=== PATIENT | male | born 1950 | race Caucasian/White ===

== ENCOUNTER 2019-05-20 20:32 | Emergency (ER) | payer MEDICARE, OTHER ==
--- NOTE | 2019-05-20 21:04 | RAD ---
XR Chest 1 View Portable HISTORY: Cough and fever COMPARISON: 06/16/2006 study. FINDINGS: A normal limits heart size is within normal limits. Postop sternotomy changes are present. The lungs are clear of infiltrates. IMPRESSION: No active intrathoracic disease.
[2019-05-20 21:29] LABS: #Eosinphils 0.1 thou/uL (0.0-0.7); #Lymphocytes 0.9 thou/uL (1.20-3.40); #Monocytes 0.7 thou/uL (0.11-0.59); #Neutrophils 4.9 thou/uL (1.40-6.50); %Basophils 0.6 % (0.0-1.0); %Eosinophils 0.8 % (0.0-10.0); %Lymphocytes 13.5 % (21.0-51.0); %Neutrophils 74.3 % (42.0-75.0); Mean Corpuscular Hemoglobin 28.8 pg (27.0-31.0); Mean Corpuscular Volume 84.8 fL (78.0-98.0); Mean Platelet Volume 8.3 fL (7.4-10.4); Platelet Count 183 thou/uL (130-400); RBC Distribution Width 13.2 % (11.5-14.5); White Blood Cell (WBC) Count 6.6 thou/uL (4.8-10.8)
[2019-05-20] MEDS ORDERED: Acetaminophen 500 MG TAB ONE (21:33)
[2019-05-20 21:41] LABS: ALT (SGPT) 18 U/L (8-55); AST (SGOT) 16 U/L (5-34); Alkaline Phosphatase 80 U/L (40-110); Anion Gap 13 mmol/L (10-20); BUN (Urea Nitrogen) 37 mg/dL (8.4-25.7); Bilirubin, Total 0.5 mg/dL (0.2-1.2); Calc. Creatinine Clearance 0 mL/min (70-130); Calcium 9.3 mg/dL (7.8-10.44); Carbon Dioxide 22 mmol/L (23-31); Chloride 102 mmol/L (98-107); Estimated GFR-MDRD 38; Glucose 270 mg/dL (80-115); Potassium 4.3 mmol/L (3.5-5.1); Sodium 133 mmol/L (136-145)
[2019-05-20 21:55] LABS: Bacteria/HPF None Seen HPF (None Seen); Bilirubin Negative (Negative); Blood, Urine Negative (Negative); Clarity Clear (Clear); Glucose, Urine (Dipstick) Greater than 1000 mg/dL (Negative); Leukocyte Negative Leu/uL (Negative); Nitrite Negative (Negative); Protein, Urine (Dipstick) 70 mg/dL (Neg-Trace); RBC/HPF None Seen HPF (0-3); Squamous Epithelial None Seen HPF (0-3); Urobilinogen Normal mg/dL (Less than 2); WBC/HPF 0-3 HPF (0-3)
== END 2019-05-21 00:39 | disposition home or self-care (01) ==
LOC: ERS 20:32
DX: J18.9 Pneumonia, unspecified organism (principal); E11.9 Type 2 diabetes mellitus without complications; E03.9 Hypothyroidism, unspecified; I10 Essential (primary) hypertension; I25.10 Atherosclerotic heart disease of native coronary artery without angina pectoris; Z86.73 Personal history of transient ischemic attack (TIA), and cerebral infarction without residual deficits; Z85.038 Personal history of other malignant neoplasm of large intestine; Z79.4 Long term (current) use of insulin; Z79.899 Other long term (current) drug therapy; Z79.82 Long term (current) use of aspirin; Z79.01 Long term (current) use of anticoagulants
CPT/HCPCS: 71045; 80053; 81003; 81015; 85025; 87040; 87086; 87804; 96360; 96361

== ENCOUNTER 2019-05-23 05:22 | Emergency (ER) | payer MEDICARE, OTHER ==
[2019-05-23 06:01] LABS: #Eosinphils 0.1 thou/uL (0.0-0.7); #Lymphocytes 0.9 thou/uL (1.20-3.40); #Monocytes 0.8 thou/uL (0.11-0.59); #Neutrophils 7.6 thou/uL (1.40-6.50); %Basophils 0.3 % (0.0-1.0); %Eosinophils 0.6 % (0.0-10.0); %Lymphocytes 9.5 % (21.0-51.0); %Monocytes 8.6 % (0.0-10.0); Hemoglobin 12.7 g/dL (14.0-18.0); Mean Corpuscular HGB CONC 33.2 g/dL (32.0-36.0); Mean Corpuscular Hemoglobin 28.3 pg (27.0-31.0); Mean Corpuscular Volume 85.3 fL (78.0-98.0); Mean Platelet Volume 8.3 fL (7.4-10.4); Platelet Count 158 thou/uL (130-400); RBC Distribution Width 13.2 % (11.5-14.5); Red Blood Cell (RBC) Count 4.47 mill/uL (4.70-6.10); White Blood Cell (WBC) Count 9.3 thou/uL (4.8-10.8)
[2019-05-23 06:41] LABS: ALT (SGPT) 14 U/L (8-55); AST (SGOT) 15 U/L (5-34); Albumin 3.7 g/dL (3.4-4.8); Alkaline Phosphatase 67 U/L (40-110); Anion Gap 13 mmol/L (10-20); BUN (Urea Nitrogen) 35 mg/dL (8.4-25.7); Bilirubin, Total 0.6 mg/dL (0.2-1.2); Calc. Creatinine Clearance 0 mL/min (70-130); Calcium 8.8 mg/dL (7.8-10.44); Carbon Dioxide 21 mmol/L (23-31); Chloride 106 mmol/L (98-107); Estimated GFR-MDRD 46; Globulin 3.1 g/dL (2.4-3.5); Glucose 126 mg/dL (80-115); Potassium 4.1 mmol/L (3.5-5.1); Protein, Total 6.8 g/dL (5.8-8.1); Sodium 136 mmol/L (136-145)
--- NOTE | 2019-05-23 07:35 | RAD ---
XR Chest Pa Lat STANDARD History: Cough Comparison: Radiograph May 20, 2019 Findings: Subtle left basilar airspace opacity. No pneumothorax. No effusion. Cardiac silhouette and mediastinal contours are within normal limits. Impression: Subtle left basilar opacity concerning for infection. Follow-up after treatment recommend ed.
[2019-05-23 09:43] LABS: Bacteria/HPF None Seen HPF (None Seen); Bilirubin Negative (Negative); Blood, Urine Trace (Negative); Clarity Clear (Clear); Glucose, Urine (Dipstick) Normal (Negative); Leukocyte Negative Leu/uL (Negative); Nitrite Negative (Negative); Protein, Urine (Dipstick) 70 mg/dL (Neg-Trace); RBC/HPF 0-3 HPF (0-3); Squamous Epithelial None Seen HPF (0-3); Urobilinogen Normal mg/dL (Less than 2); WBC/HPF 0-3 HPF (0-3)
== END 2019-05-23 10:45 | disposition home or self-care (01) ==
LOC: ERS 05:22
DX: J18.9 Pneumonia, unspecified organism (principal); I25.10 Atherosclerotic heart disease of native coronary artery without angina pectoris; E11.9 Type 2 diabetes mellitus without complications; E03.9 Hypothyroidism, unspecified; I10 Essential (primary) hypertension; Z86.73 Personal history of transient ischemic attack (TIA), and cerebral infarction without residual deficits; Z79.84 Long term (current) use of oral hypoglycemic drugs; Z79.899 Other long term (current) drug therapy; Z79.82 Long term (current) use of aspirin; Z79.01 Long term (current) use of anticoagulants
CPT/HCPCS: 36415; 36416; 71046; 80053; 81003; 81015; 83605; 83880; 84484; 85025; 87040; 87077; 87149; 93005; 96360

== ENCOUNTER 2019-06-26 15:11 | Outpatient (CLI) | payer MEDICARE ==
--- NOTE | 2019-06-26 15:57 | ULT ---
Exam: Bilateral renal ultrasound HISTORY: Chronic kidney disease COMPARISON: None FINDINGS: Right kidney: Normal cortical echotexture. No hydronephrosis. Right kidney measurements: 6.6 x 12.3 x 6.5 cm. Left kidney: Normal cortical echotexture. No hydronephrosis Left kidney measurements 6.6 x 12.8 x 5.6 cm. Urinary bladder: Normal mucosa. IMPRESSION: No hydronephrosis.
== END 2019-06-26 15:12 | disposition home or self-care (01) ==
LOC: BICULT 15:11
PROVIDERS: ATTEND Internal Medicine Nephrology
DX: N18.3 Chronic kidney disease, stage 3 (moderate) (principal)
CPT/HCPCS: 76770

== ENCOUNTER 2022-04-03 13:45 | Outpatient (CLI) | payer MEDICARE | END 2022-04-03 13:46 | disposition home or self-care (01) | LOC: BICRAD 13:45 | PROVIDERS: ATTEND Family Medicine | DX: M79.672 Pain in left foot (principal) ==

== ENCOUNTER 2022-04-30 13:58 | Outpatient (CLI) | payer MEDICARE | END 2022-04-30 13:59 | disposition home or self-care (01) | LOC: ULT 13:58 | PROVIDERS: ATTEND Family Medicine | DX: M79.605 Pain in left leg (principal) ==

== ENCOUNTER 2022-05-05 13:50 | Outpatient (CLI) | payer MEDICARE | END 2022-05-05 13:51 | disposition home or self-care (01) | LOC: BICRAD 13:50 | PROVIDERS: ATTEND Family Medicine | DX: M79.672 Pain in left foot (principal) ==

== ENCOUNTER 2022-06-28 12:52 | Emergency (ER) | payer MEDICARE ==
[2022-06-28] MEDS ORDERED: Tranexamic Acid 1,000 MG/10 ML VIAL ONE (13:27)
== END 2022-06-28 14:10 | disposition home or self-care (01) ==
LOC: ERS 12:52
DX: K64.9 Unspecified hemorrhoids (principal); E11.9 Type 2 diabetes mellitus without complications; E03.9 Hypothyroidism, unspecified; I10 Essential (primary) hypertension; Z79.4 Long term (current) use of insulin; Z79.899 Other long term (current) drug therapy

== ENCOUNTER 2022-06-28 15:11 | Emergency (ER) | payer MEDICARE ==
[2022-06-28] MEDS ORDERED: Lidocaine 1% w/Epinephrine 1:100K 20 ML VIAL ONE (15:18)
== END 2022-06-28 18:50 | disposition home or self-care (01) ==
LOC: ERS 15:11
DX: S41.131A Puncture wound without foreign body of right upper arm, initial encounter (principal); E11.9 Type 2 diabetes mellitus without complications; E03.9 Hypothyroidism, unspecified; I10 Essential (primary) hypertension; W18.30XA Fall on same level, unspecified, initial encounter; Z79.4 Long term (current) use of insulin; Z79.899 Other long term (current) drug therapy
CPT/HCPCS: 12001; 99283

== ENCOUNTER 2023-02-02 14:36 | Outpatient (CLI) | payer MEDICARE | END 2023-02-02 14:37 | disposition home or self-care (01) | LOC: BICRAD 14:36 | PROVIDERS: ATTEND Family Medicine | DX: M54.50 Low back pain, unspecified (principal); M51.36 Other intervertebral disc degeneration, lumbar region; M47.816 Spondylosis without myelopathy or radiculopathy, lumbar region; M41.9 Scoliosis, unspecified | CPT/HCPCS: 72100 ==

== ENCOUNTER → 2023-02-23 | Day surgery (SDC) | payer MEDICARE ==
[2023-02-15 14:24] VITALS: BMI 30.9
[2023-02-15 14:49] LABS: Hematocrit 37.7 % (38.8-50.0); Hemoglobin 11.4 g/dL (13.5-17.5); Mean Corpuscular HGB CONC 30.2 g/dL (32.0-36.0); Mean Corpuscular Hemoglobin 23.1 pg (27.0-33.0); Mean Corpuscular Volume 76.5 fl (81.2-95.1); Mean Platelet Volume 9.4 fl (7.4-10.4); Platelet Count 250 10x3/uL (150-450); RBC Distribution Width 20.5 % (11.5-14.5); Red Blood Cell (RBC) Count 4.93 10x6/uL (4.32-5.72); White Blood Cell (WBC) Count 7.6 10x3/uL (3.5-10.5)
[2023-02-15 14:57] LABS: Prothrombin Time 11.1 sec (9.5-12.1)
[2023-02-15 15:08] LABS: Anion Gap 14 mmol/L (10-20); BUN (Urea Nitrogen) 34 mg/dL (8.4-25.7); Calc. Creatinine Clearance 47 mL/min (70-130); Calcium 8.6 mg/dL (7.8-10.44); Carbon Dioxide 23 mmol/L (23-31); Chloride 103 mmol/L (98-107); Estimated GFR 36; Glucose 318 mg/dL (83-110); Potassium 4.4 mmol/L (3.5-5.1); Sodium 136 mmol/L (136-145)
[~2023-02-23] MED LIST: Lidocaine 1% PF 5 ML VIAL ONE; PROPOFOL 200 MG/20 ML VIAL ONE
== END ==
LOC: SDC 05:49
PROVIDERS: ATTEND Internal Medicine Cardiovascular Disease
PROC: 5A2204Z Restoration of Cardiac Rhythm, Single (ICD-10-PCS; principal; 2023-02-23)
DX: I48.19 Other persistent atrial fibrillation (principal); I48.4 Atypical atrial flutter; I25.10 Atherosclerotic heart disease of native coronary artery without angina pectoris; E11.9 Type 2 diabetes mellitus without complications; E78.5 Hyperlipidemia, unspecified; I63.9 Cerebral infarction, unspecified; E03.9 Hypothyroidism, unspecified; Z86.010 Personal history of colon polyps; Z98.890 Other specified postprocedural states; Z88.8 Allergy status to other drugs, medicaments and biological substances; Z92.89 Personal history of other medical treatment; Z79.899 Other long term (current) drug therapy
CPT/HCPCS: 36416; 80048; 85027; 85610; 92960; 93005; 93010; J2704

== ENCOUNTER 2024-05-19 17:00 | Inpatient (IN) | payer MEDICARE ==
[2024-05-19 17:58] LABS: #Basophils 0.03 10x3/uL (0.0-0.2); %Basophils 0.3 % (0.0-1.0); %Eosinophils 0.8 % (0.0-10.0); %Lymphocytes 12.4 % (21.0-51.0); %Monocytes 7.2 % (0.0-10.0); %Neutrophils 78.5 % (42.0-75.0); Hematocrit 45.1 % (42.0-52.0); Hemoglobin 14.6 g/dL (14.0-18.0); Mean Corpuscular HGB CONC 32.4 g/dL (32.0-36.0); Mean Corpuscular Hemoglobin 27.3 pg (27.0-31.0); Mean Corpuscular Volume 84.5 fL (78.0-98.0); Mean Platelet Volume 10.6 fL (7.4-10.4); Platelet Count 178 10x3/uL (130-400); RBC Distribution Width 14.5 % (11.5-14.5); Red Blood Cell (RBC) Count 5.34 mill/uL (4.70-6.10)
[2024-05-19 18:21] LABS: ALT (SGPT) 27 U/L (8-55); AST (SGOT) 24 U/L (5-34); Albumin 3.6 g/dL (3.4-4.8); Alkaline Phosphatase 94 U/L (40-110); Anion Gap 13 mmol/L (10-20); BUN (Urea Nitrogen) 57 mg/dL (8.4-25.7); Bilirubin, Total 0.6 mg/dL (0.2-1.2); Calc. Creatinine Clearance 0 mL/min (70-130); Calcium 9.7 mg/dL (7.8-10.44); Carbon Dioxide 24 mmol/L (23-31); Chloride 104 mmol/L (98-107); Estimated GFR 46; Globulin 4.2 g/dL (2.4-3.5); Glucose 175 mg/dL (83-110); Potassium 4.3 mmol/L (3.5-5.1); Protein, Total 7.8 g/dL (5.8-8.1); Sodium 137 mmol/L (136-145)
[2024-05-19 18:26] LABS: Acetaminophen Less than 10 mcg/mL (Less than 10); Alcohol Less than 10.0 mg/dL (Less than 10); Magnesium 2.7 mg/dL (1.6-2.6); Salicylate Less than 8.0 mg/dL (Less than 8.0)
[2024-05-19 19:27] LABS: Actual Bicarbonate (HCO3v) 23.1 mEq/L (22-28); Analyzer IN Cardio ER; Base Excess -2.6 mEq/L (-2.0 to +3.0); Calcium, Ionized (venous) 1.11 mmol/L (1.16-1.32); Chloride (VBG) 103 mmol/L (98-106); Hematocrit-VBG 42 % (42.0-52.0); Hemoglobin (Hb) 14.2 g/dL (12.6-17.4); Potassium (VBG) 5.29 mmol/L (3.70-5.30); Sodium 135 mmol/L (133-146); pH (venous) 7.344 (7.32-7.43)
[2024-05-19 20:24] LABS: Bacteria/HPF None Seen HPF (None Seen); Bilirubin Negative (Negative); Blood, Urine Negative (Negative); CAUTI Indications for Culture Alt mental st,lethar; Clarity Clear (Clear); Glucose, Urine (Dipstick) Greater than 1000 mg/dL (Negative); Ketone, Urine Negative (Negative); Leukocyte Negative Leu/uL (Negative); Nitrite Negative (Negative); Protein, Urine (Dipstick) 50 mg/dL (Neg-Trace); RBC/HPF 0-3 HPF (0-3); Specific Gravity, Urine 1.018 (1.002-1.036); Squamous Epithelial 0-3 HPF (0-3); Urobilinogen Normal mg/dL (Less than 2); WBC/HPF 0-3 HPF (0-3); pH, Urine 5.5 (5.0-9.0)
[2024-05-19 20:26] LABS: Urine Culture Reflex No No
[2024-05-19 20:29] LABS: Amphetamine Not Detected (NotDetected); Barbiturates Screen Not Detected (NotDetected); Benzodiazepine Screen Not Detected (NotDetected); Cocaine Metabolite Screen Not Detected (NotDetected); Methadone Not Detected (NotDetected); Methamphetamine Not Detected (NotDetected); Opiate Screen Not Detected (NotDetected); Oxycodone Screen Not Detected (NotDetected); Phencyclidine (PCP) Not Detected (NotDetected); THC/Cannabinoid Screen Detected (NotDetected); Tricyclic Screen Not Detected (NotDetected)
[2024-05-19] MEDS ORDERED: Enoxaparin 100 MG (1 mL) SYRINGE ONE (21:31)
[2024-05-20 01:07] VITALS: BMI 29.9
[2024-05-20] MEDS ORDERED: Acetaminophen 325 MG TAB PO PRN (01:15)
[2024-05-20] MEDS ORDERED: Ondansetron PF 4 MG/2 ML Vial IVP PRN (01:15)
[2024-05-20] MEDS ORDERED: Ondansetron ODT 4 MG TAB PO PRN (01:15)
[2024-05-20] MEDS ORDERED: Calcium Carbonate 500 MG ChewTAB PO PRN (01:15)
[2024-05-20] MEDS ORDERED: Acetaminophen 650 MG Suppository PR PRN (01:15)
[2024-05-20] MEDS ORDERED: Glucagon 1 MG/ML KIT IM PRN (01:16)
[2024-05-20] MEDS ORDERED: Dextrose 5% in Water 1,000 ML IV PRN (01:16)
[2024-05-20] MEDS ORDERED: Dextrose 50% Abboject 50 ML SYRINGE SLOW IVP PRN (01:16)
[2024-05-20 05:07] LABS: #Basophils 0.04 10x3/uL (0.0-0.2); %Basophils 0.5 % (0.0-1.0); %Eosinophils 1.2 % (0.0-10.0); %Lymphocytes 31.6 % (21.0-51.0); %Monocytes 8.6 % (0.0-10.0); %Neutrophils 57.7 % (42.0-75.0); Hemoglobin 12.4 g/dL (14.0-18.0); Mean Corpuscular HGB CONC 33.5 g/dL (32.0-36.0); Mean Corpuscular Hemoglobin 27.4 pg (27.0-31.0); Mean Corpuscular Volume 81.9 fL (78.0-98.0); Mean Platelet Volume 10.2 fL (7.4-10.4); Platelet Count 155 10x3/uL (130-400); RBC Distribution Width 14.5 % (11.5-14.5); Red Blood Cell (RBC) Count 4.52 mill/uL (4.70-6.10)
[2024-05-20 05:25] LABS: Anion Gap 10 mmol/L (10-20); BUN (Urea Nitrogen) 48 mg/dL (8.4-25.7); Calc. Creatinine Clearance 61 mL/min (70-130); Calcium 8.7 mg/dL (7.8-10.44); Carbon Dioxide 21 mmol/L (23-31); Chloride 109 mmol/L (98-107); Estimated GFR 52; Glucose 139 mg/dL (83-110); Potassium 4.3 mmol/L (3.5-5.1); Sodium 136 mmol/L (136-145)
[2024-05-20] MEDS: Levothyroxine Sodium 100 MCG TAB PO SCH (05:48)
[2024-05-20] MEDS: Insulin Glargine 30 UNITS/0.3 ML VIAL SC SCH (08:14)
[2024-05-20] MEDS: Hydrochlorothiazide 25 MG TAB PO SCH (08:16)
[2024-05-20] MEDS: Losartan 25 MG TAB PO SCH (08:16)
[2024-05-20] MEDS: Famotidine 20 MG TAB PO SCH (08:16)
[2024-05-20] MEDS: Atorvastatin Calcium 40 MG TAB PO SCH (08:16)
[2024-05-20] MEDS: Famotidine/PF 20 mg/2ml Vial SLOW IVP SCH (08:18)
[2024-05-20] MEDS: Insulin Lispro 100 UNIT/ML 10 ML VIAL SC PRN (11:57)
[2024-05-20] MEDS ORDERED: Metoprolol Succinate XL 50 MG ER.TAB PO SCH (21:00)
[2024-05-20] MEDS: Rivaroxaban 15 MG TAB PO SCH (21:26)
[2024-05-21 04:09] LABS: #Basophils 0.04 10x3/uL (0.0-0.2); %Basophils 0.6 % (0.0-1.0); %Eosinophils 1.6 % (0.0-10.0); %Lymphocytes 32.8 % (21.0-51.0); %Monocytes 11.4 % (0.0-10.0); %Neutrophils 53.3 % (42.0-75.0); Hematocrit 38.2 % (42.0-52.0); Hemoglobin 12.7 g/dL (14.0-18.0); Mean Corpuscular HGB CONC 33.2 g/dL (32.0-36.0); Mean Corpuscular Hemoglobin 27.3 pg (27.0-31.0); Mean Corpuscular Volume 82.2 fL (78.0-98.0); Mean Platelet Volume 10.4 fL (7.4-10.4); Platelet Count 139 10x3/uL (130-400); RBC Distribution Width 14.2 % (11.5-14.5); Red Blood Cell (RBC) Count 4.65 mill/uL (4.70-6.10)
[2024-05-21 04:22] LABS: Anion Gap 11 mmol/L (10-20); BUN (Urea Nitrogen) 50 mg/dL (8.4-25.7); Calc. Creatinine Clearance 53 mL/min (70-130); Calcium 8.7 mg/dL (7.8-10.44); Carbon Dioxide 21 mmol/L (23-31); Chloride 107 mmol/L (98-107); Estimated GFR 44; Glucose 200 mg/dL (83-110); Potassium 4.2 mmol/L (3.5-5.1); Sodium 135 mmol/L (136-145)
[2024-05-21] MEDS: Aspirin 81 mg Enteric Coated Tablet PO SCH (09:40)
[2024-05-21] MEDS: Insulin Lispro 100 UNIT/ML 10 ML VIAL SC PRN ×2 (11:21→21:11)
[2024-05-22 05:41] LABS: #Basophils 0.05 10x3/uL (0.0-0.2); %Basophils 0.7 % (0.0-1.0); %Eosinophils 1.5 % (0.0-10.0); %Lymphocytes 29.3 % (21.0-51.0); %Monocytes 9.7 % (0.0-10.0); %Neutrophils 58.4 % (42.0-75.0); Hematocrit 37.8 % (42.0-52.0); Hemoglobin 12.6 g/dL (14.0-18.0); Mean Corpuscular HGB CONC 33.3 g/dL (32.0-36.0); Mean Corpuscular Hemoglobin 27.7 pg (27.0-31.0); Mean Corpuscular Volume 83.1 fL (78.0-98.0); Mean Platelet Volume 10.6 fL (7.4-10.4); Platelet Count 154 10x3/uL (130-400); RBC Distribution Width 13.9 % (11.5-14.5); Red Blood Cell (RBC) Count 4.55 mill/uL (4.70-6.10)
[2024-05-22 05:55] LABS: Anion Gap 12 mmol/L (10-20); BUN (Urea Nitrogen) 50 mg/dL (8.4-25.7); Calc. Creatinine Clearance 55 mL/min (70-130); Calcium 8.9 mg/dL (7.8-10.44); Carbon Dioxide 24 mmol/L (23-31); Chloride 108 mmol/L (98-107); Estimated GFR 46; Glucose 90 mg/dL (83-110); Potassium 4.5 mmol/L (3.5-5.1); Sodium 139 mmol/L (136-145)
[2024-05-23] MEDS: Levothyroxine 175 MCG TAB PO SCH (04:54)
[2024-05-23 05:10] LABS: #Basophils 0.03 10x3/uL (0.0-0.2); %Basophils 0.4 % (0.0-1.0); %Eosinophils 1.8 % (0.0-10.0); %Lymphocytes 28.1 % (21.0-51.0); %Monocytes 11.5 % (0.0-10.0); %Neutrophils 57.8 % (42.0-75.0); Hematocrit 39.2 % (42.0-52.0); Hemoglobin 13.2 g/dL (14.0-18.0); Mean Corpuscular HGB CONC 33.7 g/dL (32.0-36.0); Mean Corpuscular Hemoglobin 27.4 pg (27.0-31.0); Mean Corpuscular Volume 81.5 fL (78.0-98.0); Mean Platelet Volume 10.5 fL (7.4-10.4); Platelet Count 161 10x3/uL (130-400); RBC Distribution Width 13.8 % (11.5-14.5); Red Blood Cell (RBC) Count 4.81 mill/uL (4.70-6.10)
[2024-05-23 05:36] LABS: Anion Gap 13 mmol/L (10-20); BUN (Urea Nitrogen) 52 mg/dL (8.4-25.7); Calc. Creatinine Clearance 64 mL/min (70-130); Calcium 8.7 mg/dL (7.8-10.44); Carbon Dioxide 20 mmol/L (23-31); Chloride 109 mmol/L (98-107); Estimated GFR 55; Glucose 57 mg/dL (83-110); Potassium 4.3 mmol/L (3.5-5.1); Sodium 138 mmol/L (136-145)
[2024-05-23 11:28] VITALS: BP 148/65; TEMP 97.5
== END 2024-05-23 12:05 | disposition home or self-care (01) | DRG 637 ==
LOC: ERS 17:00 → OBS 22:57 → OBSVTOIN 05-20 15:33
PROVIDERS: ADMIT Student in an Organized Health Care Education/Training Program; ATTEND Student in an Organized Health Care Education/Training Program
DX: E11.649 Type 2 diabetes mellitus with hypoglycemia without coma (principal); G93.41 Metabolic encephalopathy; I25.10 Atherosclerotic heart disease of native coronary artery without angina pectoris; I48.91 Unspecified atrial fibrillation; E03.9 Hypothyroidism, unspecified; N18.9 Chronic kidney disease, unspecified; I48.0 Paroxysmal atrial fibrillation; Z85.038 Personal history of other malignant neoplasm of large intestine; Z86.73 Personal history of transient ischemic attack (TIA), and cerebral infarction without residual deficits; Z79.899 Other long term (current) drug therapy; Z88.8 Allergy status to other drugs, medicaments and biological substances; Z87.890 Personal history of sex reassignment; Z79.82 Long term (current) use of aspirin; Z95.5 Presence of coronary angioplasty implant and graft
CPT/HCPCS: 36415; 36416; 70450; 71045; 80048; 80053; 80306; 80307; 81001; 82805; 83605; 83735; 84443; 85025; 93005; 96372; G0378; J1650; J1815